=== PATIENT | male | born 1975 | race Caucasian/White ===

== ENCOUNTER → 2020-08-16 12:50 | Outpatient (BNVA) | payer MEDICAID, SELFPAY | PROVIDERS: PCP Internal Medicine; Visit Provider Nurse Practitioner Psychiatric/Mental Health | DX: Z76.89 Persons encountering health services in other specified circumstances (principal) ==

== ENCOUNTER → 2020-09-05 14:42 | Outpatient (BNVA) | payer MEDICAID, SELFPAY | PROVIDERS: PCP Internal Medicine; Visit Provider Internal Medicine | DX: F11.99 Opioid use, unspecified with unspecified opioid-induced disorder (principal) | CPT/HCPCS: 80305; 99212 ==

== ENCOUNTER → 2020-09-12 15:28 | Outpatient (BNVA) | payer MEDICAID, SELFPAY | PROVIDERS: Visit Provider Internal Medicine | DX: F11.99 Opioid use, unspecified with unspecified opioid-induced disorder (principal) ==

== ENCOUNTER → 2020-09-26 14:49 | Outpatient (BNVA) | payer MEDICAID, SELFPAY | PROVIDERS: Visit Provider Internal Medicine | DX: Z76.89 Persons encountering health services in other specified circumstances (principal) ==

== ENCOUNTER → 2020-10-10 15:08 | Outpatient (BNVA) | payer MEDICAID, SELFPAY | PROVIDERS: Visit Provider Internal Medicine | DX: Z76.89 Persons encountering health services in other specified circumstances (principal) ==

== ENCOUNTER → 2020-10-24 15:02 | Outpatient (BNVA) | payer MEDICAID, SELFPAY | PROVIDERS: Visit Provider Internal Medicine | DX: F11.99 Opioid use, unspecified with unspecified opioid-induced disorder (principal) ==

== ENCOUNTER → 2020-11-07 15:12 | Outpatient (BNVA) | payer MEDICAID, SELFPAY | PROVIDERS: Visit Provider Internal Medicine | DX: F11.99 Opioid use, unspecified with unspecified opioid-induced disorder (principal) ==

== ENCOUNTER → 2020-11-21 13:51 | Outpatient (BNVA) | payer MEDICAID, SELFPAY | PROVIDERS: Visit Provider Internal Medicine | DX: F11.99 Opioid use, unspecified with unspecified opioid-induced disorder (principal) ==

== ENCOUNTER 2020-11-29 19:35 | Emergency (ER) | payer MEDICAID, SELFPAY ==
[2020-11-29 19:37] VITALS: BP 93/64; PULSE 76; RESP 16; TEMP 36.4; O2SAT 97; BMI 29.2
--- NOTE | 2020-11-29 21:00 | ED_ITS ---
HPI - Psych General Chief Complaint: Psychiatric Symptoms Stated Complaint: Crisis Time Seen by Provider: 11/29/20 20:06 Source: patient Mode of arrival: ambulatory Limitations: no limitations History of Present Illness HPI Narrative: 45-year-old male with a past medical history of substance abuse here with complaints of suicidal thoughts for the last month. He tells me he would plan on overdosing on heroin which he has access to. He does wheeze when seeing a therapist who recommended coming to the emergency department for further evaluation. He tells me he used the medications for schizophrenia bipolar however he did no longer taking these medications. He is interested in getting restarted on his medications. He does not have psychiatrist. He denies homicidal ideations, hallucinations. No physical complaints. He is using 15 bags of heroin snorting every day. Sometimes he uses cocaine. Denies alcohol use. He has been on Suboxone before but is not interested in starting this again. He is interested in going to detox MD complaint: suicidal ideation Related Data Previous Rx's Medication Instructions Recorded buprenorphine 8 mg-naloxone 2 mg 3 film SUBLINGUAL DAILY 7 Days #21 09/05/20 sublingual film ea clonidine HCl 0.1 mg tablet 0.1 mg PO TID PRN 7 Days #21 tab 09/05/20 hydroxyzine pamoate 25 mg capsule 25 mg PO TID PRN 7 Days #21 cap 09/05/20 buprenorphine 8 mg-naloxone 2 mg 3 film SUBLINGUAL DAILY 14 Days 09/12/20 sublingual film #42 ea buprenorphine 8 mg-naloxone 2 mg 3 film SUBLINGUAL DAILY 14 Days 09/26/20 sublingual film #21 ea buprenorphine 8 mg-naloxone 2 mg 3 film SUBLINGUAL DAILY 14 Days 11/21/20 sublingual film #42 ea Allergies Allergy/AdvReac Type Severity Reaction Status Date / Time Fish Containing Products Allergy Unknown THROAT Unverified 06/21/20 17:43 CLOSES Seafood Allergy Severe Hives, Uncoded 06/21/20 17:43 THROAT SWELLING, FACIAL SWELLING, BREATHING DIFF fish Allergy Unknown Uncoded 06/04/20 00:00 Review of Systems Review of Systems: Yes all other systems are reviewed and are negative Constitutional: Constitutional: Reports no additional constitutional complaints, Denies body ache(s), Denies chills, Denies fever(s), Denies headache(s) and Denies weakness Eyes: Eyes: Reports no additional eye complaints and Denies change in vision ENT: Reports system reviewed and no additional complaints, except as docu mented, Denies dizziness, Denies headache(s), Denies nasal congestion, Denies nasal discharge and Denies neck pain Cardiovascular: Cardiovascular: Reports no additional cardiovascular complaints, Denies chest pain, Denies leg edema and Denies dyspnea Respiratory: Respiratory: Reports no additional respiratory complaints, Denies cough and Denies dyspnea Gastrointestinal: Gastrointestinal: Reports no additional gastrointestinal complaints, Denies abdominal pain, Denies diarrhea, Denies nausea and Denies vomiting Genitourinary: Genitourinary: Denies urinary incontinence Musculoskeletal: Musculoskeletal: Reports no additional musculoskeletal complaints, Denies back pain, Denies arthralgias, Denies joint swelling, Denies neck pain, Denies numbness and Denies tingling Integumentary/Breasts: Skin/Breast: Reports system reviewed and no additional complaints, except as docu and Denies rash Neurologic: Reports system reviewed and no additional complaints, except as documented, Denies Abnormal speech present, Denies dizziness, Denies headache(s), Denies numbness, Denies tingling and Denies weakness Psychiatric: Psychiatric: Denies anxiety, Reports depression, Denies visual hallucinations, Denies hallucinations, Denies tactile hallucinations, Denies homicidal ideation and Reports suicidal ideation REPLACED BY [facility] Past Medical History Attestation statement: The following information was validated with the patient. Source: old records reviewed and nursing notes reviewed Medical History Opioid use disorder Social History Social History Advance Directives: No Advance Directives Information Provided: Yes Physical Exam Vital Signs: Vital Signs: Last Vital Signs Temp 97.6 F 11/29/20 19:37 Pulse 76 11/29/20 19:37 Resp 16 11/29/20 23:58 BP 93/64 11/29/20 19:37 Pulse Ox 97 11/29/20 19:37 Body Mass Index 29.2 Const: General: cooperative, healthy appearing, comfortable and no acute distress Orientation/consciousness: patient oriented x3 Limitations: no limitations HENMT: Head: Yes normal to inspection Ears: hearing grossly normal bilaterally General nose exam: Normal external nose present Face and sinus: Yes normal facial exam Mouth: Normal oral and palatal mucosa present Throat: Yes posterior oropharynx normal Eyes: General: appearance normal, both eyes and all related structures Pupils: Equal, round and reactive pupils present Neck: Neck: Yes normal visual inspection Chest: Chest palpation & inspection: normal inspection of the chest Resp: Effort & Inspection: normal respiratory effort Auscultation: clear to auscultation bilaterally Cardio: Rate: regular rate Rhythm: regular rhythm Peripheral pulses: Peripheral pulses 2+ throughout GI: Inspection: Yes normal to inspection Palpation (GI): Soft to palpation and nontender Auscultation: normal bowel sounds Back/Spine/Pelvis: Thoracic/Lumbar Spine: thoracic and lumbar spine normal to inspection Skin: General skin exam: no rashes or lesions noted Neuro: General: patient oriented x3, no focal motor deficits and normal sensation to monofilament Cranial nerves: Yes Equal, round and reactive pu pils present Cognition (Neuro): normal cognition Speech: No Abnormal speech present Gait exam (Neuro): Normal gait present Motor exam (neuro): 5/5 motor strength present throughout Extrem: General: Yes normal to inspection Psych: Appearance: disheveled Mental Status: mental status grossly normal Speech and movement: Normal speech and movement present Affect: Blunted affect present Attitude: cooperative Thought content: Suicidality present Course Course Course Narrative: 45-year-old male here with suicidal thoughts. Plan to OD on heroin. No physical complaints. No concern for acute ingestion or trauma. Will check labs, drug screen. Will involve crisis. 0200-Sign out to night team pending N evaluation. MDM - Psych Lab Data Result diagrams: 11/29/20 21:00 11/29/20 21:00 Labs: Lab Results 11/29/20 11/29/20 11/29/20 Range/Units 21:00 21:00 21:00 WBC 10.7 (4.8-10.8) X10*3/uL RBC 4.81 (4.60-5.80) X10*6/uL Hgb 12.7 L (14.0-18.0) g/dl Hct 40.1 L (42-52) % MCV 83.4 (80-98) fL MCH 26.4 L (27.0-33.0) pg MCHC 31.7 (31.0-36.0) g/dl RDW 13.9 (11.0-16.0) % Plt Count 206 (160-400) X10*3/uL MPV 10.9 (9.4-12.4) fL Immature Gran % (Auto) Cancelled Neut % (Auto) Cancelled Lymph % (Auto) Cancelled [facility] [facility] % (Auto) Cancelled Eos % (Auto) Cancelled Baso % (Auto) Cancelled Lymph # (Auto) Cancelled [facility] # (Auto) Cancelled Eos # (Auto) Cancelled Baso # (Auto) Cancelled Abs Immat Gran (auto) Cancelled Absolute Neuts (auto) Cancelled Absolute Nucleated RBC 0.000 (0.0-0.012) X10*3/uL Nucleated RBC % (auto) 0.0 (0.0-0.2) /100WBC Neutrophils % (Manual) 55 (45-73) % Band Neutrophils % 0 L (3-5) % Lymphocytes % (Manual) 36 (20-40) % Monocytes % (Manual) 6 (2-11) % Eosinophils % (Manual) 1 (0-4) % Basophils % (Manual) 2 H (0-1) % Abs Neuts (Manual) 5.9 (2.2-7.9) X10*3/uL Lymphocytes # (Manual) 3.9 (0.6-4.8) X10*3/uL Monocytes # (Manual) 0.6 (0.0-1.2) X10*3/uL Eosinophils # (Manual) 0.1 (0.0-0.8) X10*3/UL Basophils # (Manual) 0.2 (0.0-0.3) X10*3/uL Platelet Estimate NORMAL (NORMAL) Plt Morphology Comment NORMAL RBC Morphology NOTED Microcytosis 1+ Sodium 142 (135-145) mmol/L Potassium 4.4 (3.3-5.1) mmol/L Chloride 103 (96-108) mmol/L Carbon Dioxide 33 H (22-29) mmol/L Anion Gap 10 L (12-20) BUN 17 H (9-16) mg/dL Creatinine 1.02 (0.5-1.4) mg/dL Estim Creat Clear Calc 74.0 Estimated GFR > 60 Random Glucose 105 (60-115) mg/dL Calcium 9.3 (8.4-10.2) mg/dL Total Bilirubin 0.3 (0.0-1.0) mg/dL Direct Bilirubin < 0.2 (0.0-0.5) mg/dL AST 45 H (5-37) U/L ALT 24 (0-40) U/L Alkaline Phosphatase 81 (39-117) U/L Total Protein 6.9 (6.5-8.0) g/dL Albumin 4.3 (3.5-5.0) g/dL Ethyl Alcohol < 10 mg/dL Discharge Plan Discharge Clinical Impression: Suicidal ideation, Opioid use disorder Prescriptions: No Action buprenorphine-naloxone [Suboxone] 8-2 mg film 3 film sublingual DAILY 7 Days Qty: 21 RF: 0 clonidine HCl 0.1 mg tablet 0.1 mg PO TID PRN (Reason: opiate reversal) 7 Days Qty: 21 RF: 0 hydroxyzine pamoate [Vistaril] 25 mg capsule 25 mg PO TID PRN (Reason: itching) 7 Days Qty: 21 RF: 0 buprenorphine-naloxone [Suboxone] 8-2 mg film 3 film sublingual DAILY 14 Days Qty: 42 RF: 0 buprenorphine-naloxone [Suboxone] 8-2 mg film 3 film sublingual DAILY 14 Days Qty: 21 RF: 0 buprenorphine-naloxone [Suboxone] 8-2 mg film 3 film sublingual DAILY 14 Days Qty: 42 RF: 0
[2020-11-29 21:05] LABS: Hematocrit 40.1 % (42-52); Hemoglobin 12.7 g/dl (14.0-18.0); Mean Corpuscular HGB Conc 31.7 g/dl (31.0-36.0); Mean Corpuscular Hemoglobin 26.4 pg (27.0-33.0); Mean Corpuscular Volume 83.4 fL (80-98); Mean Platelet Volume 10.9 fL (9.4-12.4); Platelet Count 206 X10*3/uL (160-400); Red Blood Count 4.81 X10*6/uL (4.60-5.80); Red Cell Distribution Width 13.9 % (11.0-16.0)
[2020-11-29 21:09] LABS: WBC ABN SCTR FOR CBC 1
[2020-11-29 21:21] LABS: Ethanol < 10 mg/dL
[2020-11-29 21:25] LABS: Alanine Aminotransferase 24 U/L (0-40); Albumin Level 4.3 g/dL (3.5-5.0); Alkaline Phosphatase 81 U/L (39-117); Anion Gap 10 (12-20); Aspartate Amino Transferase 45 U/L (5-37); Bilirubin Direct < 0.2 mg/dL (0.0-0.5); Bilirubin Total 0.3 mg/dL (0.0-1.0); Blood Urea Nitrogen 17 mg/dL (9-16); Calcium 9.3 mg/dL (8.4-10.2); Carbon Dioxide 33 mmol/L (22-29); Chloride 103 mmol/L (96-108); Estimated Glomerular Filt Rate > 60; Glucose Random 105 mg/dL (60-115); Potassium 4.4 mmol/L (3.3-5.1); Sodium 142 mmol/L (135-145); Total Protein 6.9 g/dL (6.5-8.0)
[2020-11-29 21:44] LABS: Band Neutrophils Percent 0 % (3-5); Basophils Percent Manual 2 % (0-1); Eosinophils Percent Manual 1 % (0-4); Lymphocytes Percent Manual 36 % (20-40); Monocytes Percent Manual 6 % (2-11); Neutrophils Percent Manual 55 % (45-73)
[2020-11-29 21:45] LABS: Microcytosis 1+; RBC Morphology NOTED
[2020-11-29 21:46] LABS: Platelet Estimate NORMAL (NORMAL); Platelet Morphology Comment NORMAL
[2020-11-29 21:48] LABS: Basophils Abs Manual 0.2 X10*3/uL (0.0-0.3); Eosinophils Absolute Manual 0.1 X10*3/UL (0.0-0.8); Lymphocytes Absolute Manual 3.9 X10*3/uL (0.6-4.8); Monocytes Absolute Manual 0.6 X10*3/uL (0.0-1.2); Neutrophils Absolute Manual 5.9 X10*3/uL (2.2-7.9); White Blood Count 10.7 X10*3/uL (4.8-10.8)
--- NOTE | 2020-11-29 21:50 | PC.NURSE ---
FAXED TO [facility], AWAITING EVALUATION
[2020-11-29 23:58] VITALS: RESP 16
[2020-11-30] VITALS (9 sets, daily range): BP systolic 104–137; BP diastolic 70–80; PULSE 70–95; RESP 16–18; TEMP 35.9–37; O2SAT 96–100
[2020-11-30 02:57] LABS: Amphetamine Screen Urine Not Detected (Not Detect); Barbiturates, Urine Not Detected (Not Detect); Benzodiazepines Screen Urine Not Detected (Not Detect); Cannabinoid Screen Urine POSITIVE (Not Detect); Cocaine Screen Urine POSITIVE (Not Detect); Opiate Screen Urine POSITIVE (Not Detect); Phencyclidine Screen Urine Not Detected (Not Detect)
--- NOTE | 2020-11-30 14:04 | PC.NURSE ---
Pt became agitated and was upset at the crisis eval process. He was asking very agitated to leave. Denied SI and HI. PT evaluated by 2 providers and was discharged
--- NOTE | 2020-11-30 14:26 | PC.NURSE ---
Pt wishing for detox was being seen by JOSE LUIS and became agitated with the process. He wanted to go home at this point stating that he was just going to leave and use. Pt spoke to by 2 providers and he decided to stay to receive treatment.
[2020-11-30] MEDS: LORazepam 1 MG TABLET PO (14:28)
[2020-11-30] MEDS: cloNIDine HCL 0.2 MG TABLET PO (14:29)
[2020-11-30 16:47] LABS: COVID-19 Test Negative (Negative)
[2020-11-30] MEDS: Buprenorphine/Naloxone 4/1 mg FILM 1 FILM SUBLINGUAL ×2 (17:34→21:16)
--- NOTE | 2020-11-30 17:36 | PC.NURSE ---
Pt scored on the COWS scale and given SL suboxone. He is calm and cooperative at this time.
--- NOTE | 2020-11-30 20:01 | PC.NURSE ---
Pt resting in chair in hallway at this time. Breathing equal and unlabored. Occasionally up to bathroom with steady gait. No acute distress. Will continue to monitor.
--- NOTE | 2020-11-30 22:49 | PC.NURSE ---
CARE team contacted, no detox beds available. Provider to bedside to discuss with patient. Patient attempting to call sister for ride. Pt states he understands to go to see investment recovery technician tomorrow to help with resources.
--- NOTE | 2020-11-30 23:07 | PC.NURSE ---
Upon DC, patient getting very upset with staff. Stating give me my fucking clothes . This RN explained another staff member was getting clothes. Pt continued to yell and scream, then began walking around ED screaming Give me my fucking clothes now . Again attempted to deescalate patient, patient then came in front of nurses station and grabbed full urinal with urine and threw it at nurses station and staff. Patient then took all equipment and threw it at table in front of nurses station and on floor continuing to yell and scream at staff. Security button pushed and security and additional staff present. Pt taken to ground and handcuffed. Pt continuing to fight. [employer] called. PD came and escorted patient off of property. Paperwork and belongings given to PD. PD made aware that patient is cleared by N.
== END 2020-11-30 23:16 | disposition home or self-care (01) ==
PROVIDERS: Nurse Practitioner Family; Physician Assistant Medical; Emergency Provider Internal Medicine
DX: F11.20 Opioid dependence, uncomplicated (principal); F14.10 Cocaine abuse, uncomplicated; F12.90 Cannabis use, unspecified, uncomplicated; F20.9 Schizophrenia, unspecified; F31.9 Bipolar disorder, unspecified; Z20.822 Contact with and (suspected) exposure to COVID-19
CPT/HCPCS: 36415; 80048; 80076; 80307; 80320; 85007; 85027; 87635; 99285

== ENCOUNTER → 2021-01-16 11:10 | Outpatient (BNVA) | payer MEDICAID, SELFPAY | PROVIDERS: Visit Provider Internal Medicine | DX: F11.99 Opioid use, unspecified with unspecified opioid-induced disorder (principal); F14.10 Cocaine abuse, uncomplicated; F12.90 Cannabis use, unspecified, uncomplicated | CPT/HCPCS: 80305; 99212 ==

== ENCOUNTER → 2021-03-20 13:01 | Outpatient (BNVA) | payer MEDICAID, SELFPAY | PROVIDERS: Visit Provider Internal Medicine | DX: F14.10 Cocaine abuse, uncomplicated (principal); F11.99 Opioid use, unspecified with unspecified opioid-induced disorder; F12.90 Cannabis use, unspecified, uncomplicated | CPT/HCPCS: 80305; 99212 ==

== ENCOUNTER → 2021-06-28 13:24 | Outpatient (BNVA) | payer MEDICAID, SELFPAY | PROVIDERS: Visit Provider Internal Medicine | DX: F11.90 Opioid use, unspecified, uncomplicated (principal) | CPT/HCPCS: 80305; 99212 ==

== ENCOUNTER 2021-09-17 09:48 | Outpatient (REF) | payer MEDICAID, SELFPAY ==
[2021-09-17 17:13] LABS: Fentanyl, urine POSITIVE (Not Detect)
== END 2021-09-17 09:49 | disposition home or self-care (01) ==
LOC: HO.LNP 09:48
PROVIDERS: Visit Provider Internal Medicine
DX: F11.20 Opioid dependence, uncomplicated (principal); Z79.899 Other long term (current) drug therapy
CPT/HCPCS: 80305; 80307; 99212

== ENCOUNTER 2021-10-28 02:04 | Emergency (ER) | payer MEDICAID, SELFPAY ==
--- NOTE | 2021-10-28 02:12 | PC.NURSE ---
This RN calling pt into Triage. Pt on the phone, pacing in the WR, states give me a few minutes please!!!
== END 2021-10-28 02:37 | disposition left against medical advice (07) ==
LOC: HO.ED 02:36
PROVIDERS: Emergency Provider Emergency Medicine
DX: M54.9 Dorsalgia, unspecified (principal)